=== PATIENT | male | born 1980 | race Caucasian/White ===

== ENCOUNTER 2016-08-13 21:24 | Emergency (ER) | payer OTHER ==
[2016-08-13] MEDS ORDERED: IOPAMIDOL 300 (61%) 150 ML VIAL IV ONE (21:25)
[2016-08-13 23:11] LABS: ABSOLUTE NEUTROPHIL COUNT 8.3 K/mm3 (1.8-7.7); BASO # 0.1 K/mm3 (0.0-0.2); BASO % 0.5 % (0.2-1.0); EOS % 0.3 % (0.9-2.9); HEMATOCRIT 46.1 % (32.0-52.0); IMM NEUT # 0.1 K/mm3 (0-0.2); IMM NEUT% 0.8 % (0-1); LYMPH % 17.4 % (15-45); MEAN CELL VOLUME 90.2 fl (80.0-94.0); MEAN CORPUSCULAR HEMOGLOBIN 31.3 pg (27.0-31.0); MEAN CORPUSCULAR HGB CONC 34.7 g/dl (33.0-37.0); MEAN PLATELET VOLUME 8.5 fl (7.4-10.4); MONO % 8.7 % (4-12); NEUT % 72.3 % (43-75); PLATELET COUNT 284 K/mm3 (130-400); RED CELL DISTRIBUTION WIDTH 11.5 % (11.5-14.5)
[2016-08-13 23:11] LABS: PH,URINE 6.5 (5.0-8.0); URINE BILIRUBIN NEGATIVE (NEGATIVE); URINE BLOOD NEGATIVE (NEGATIVE); URINE GLUCOSE (UA) 1+ (NEGATIVE); URINE LEUKOCYTE ESTERASE NEGATIVE (NEGATIVE); URINE NITRITE NEGATIVE (NEGATIVE); URINE PROTEIN TRACE (NEGATIVE); URINE UROBILINOGEN NORMAL (0-1 mg/dl)
[2016-08-13 23:18] LABS: URINE APPEARANCE CLEAR; URINE COLOR DARK YELLOW
[2016-08-13 23:34] LABS: ALB/GLOB RATIO 1.5 (>1.0); ALBUMIN 4.5 gm/dL (3.5-5.7); CALCIUM 9.7 mg/dL (8.6-10.3)
[2016-08-13] MEDS ORDERED: KETOROLAC TROMETHAMINE 30 MG/ML 1 ML VIAL ONE (23:42)
[2016-08-13] MEDS ORDERED: HYDROMORPHONE HCL 0.5 MG/0.5 ML SYRINGE ONE (23:42)
[2016-08-13] MEDS ORDERED: ONDANSETRON 4 MG/2ML 2 ML VIAL ONE (23:42)
--- NOTE | 2016-08-14 08:07 | CT ---
Exam: CT abdomen and pelvis with contrast COMPARISON: None INDICATION: Right lower quadrant pain. TECHNIQUE: CT examination of the abdomen and pelvis was obtained following the administration of 125 mL Isovue-300 intravenous contrast. FINDINGS: There are relatively dilated loops of small bowel within the pelvis, primarily involving the ileum. The stomach is moderately distended, however the jejunum is relatively normal. There is also almost complete collapse of the colon, extending from the proximal transverse colon into the rectosigmoid colon. 3 discrete transition points are identified. One is within the left lower quadrant, where there is a short segment of relative wall thickening; this is annotated on axial image 89 of 128. There are, however, distended loops of small bowel both proximal and distal to this segment of bowel. There is a second focus is collapsed small bowel within the right lower quadrant involving the distal ileum without wall thickening; the terminal ileum is normal. Finally, the third transition point to decompressed bowel is within the hepatic flexure. Again this focus is without wall thickening. There is a minimal amount of fluid about the bowel loops. The appendix is within normal limits. There is no pneumatosis or free air. Hepatic steatosis. Spleen is normal in size. Pancreas, kidneys, adrenal glands and gallbladder are unremarkable. Tiny fat-containing periumbilical hernia is noted. There is mild dependent atelectasis within the lung bases. No worrisome lytic or blastic osseous lesion is identified. IMPRESSION: Multiple loops of fluid-filled dilated small bowel, primarily involving the ileum, with three discrete transition point as described above. Although the terminal ileum is normal, findings could reflect underlying Crohn disease. Alternatively, this could simply reflect underlying enteritis with areas of peristalsis. There is no free air. No evidence of acute appendicitis. Preliminary report transmitted to the emergency department from [facility] at 0032 hours 08/14/2016.
== END 2016-08-14 02:19 | disposition home or self-care (01) ==
LOC: ED 21:24
DX: R10.11 Right upper quadrant pain (principal); I10 Essential (primary) hypertension; Z87.891 Personal history of nicotine dependence
CPT/HCPCS: 83690; 85025; 80053; 81003; 74177; 96375 ×2; 99284 ×2; 96374; J1885; J2405; Q9967; J1170